=== PATIENT | male | born 1990 | race Two or more races ===

== ENCOUNTER 2016-10-30 17:41 | Emergency (ER) | payer OTHER ==
[~2016-10-30] VITALS: Ht 175.3 cm; Wt 96.6 kg
[2016-10-30 18:00] VITALS: BP 106/67
== END 2016-10-30 21:10 | disposition left against medical advice (07) ==
LOC: ER 17:48
DX: R53.1 Weakness (principal); R20.0 Anesthesia of skin; Z53.21 Procedure and treatment not carried out due to patient leaving prior to being seen by health care provider
CPT/HCPCS: 70450

== ENCOUNTER 2018-05-20 16:18 | Emergency (ER) | payer MEDICAID, OTHER ==
[~2018-05-20] VITALS: Ht 175.3 cm; Wt 90.7 kg
[2018-05-20 20:10] VITALS: BP 145/92
== END 2018-05-20 20:32 | disposition home or self-care (01) ==
LOC: ER 16:30
DX: J01.00 Acute maxillary sinusitis, unspecified (principal); F17.210 Nicotine dependence, cigarettes, uncomplicated; F12.90 Cannabis use, unspecified, uncomplicated
CPT/HCPCS: 70486